=== PATIENT | male | born 1990 | race Caucasian/White ===

== ENCOUNTER 2017-01-29 18:13 | Inpatient (IN) | payer OTHER ==
[2017-01-29 19:04] LABS: Hematocrit 47 % (42-52); Hemoglobin 15.4 g/dl (14.0-18.0); Mean Corpuscular HGB Conc 33 g/dl (31-36); Mean Corpuscular Hemoglobin 30 pg (27-31); Mean Corpuscular Volume 92 fL (80-94); Mean Platelet Volume 9 um3 (7.4-10.4); Red Blood Count 5.08 10^6/ul (4.0-5.4); Red Cell Distribution Width 14 % (10.5-15); White Blood Count 8.9 10^3/ul (3.5-10.8)
[2017-01-29 19:21] LABS: Benzodiazepine Urine Screen None Detected (None Detect)
[2017-01-29 19:21] LABS: ALT 12 U/L (7-52); AST 20 U/L (13-39); Albumin 4.5 g/dL (3.2-5.2); Alkaline Phosphatase 62 U/L (34-104); Anion Gap 7 mmol/L (2-11); BUN/Creatinine Ratio 14.4 (8-20); Blood Urea Nitrogen 16 mg/dL (6-24); CO2 Carbon Dioxide 29 mmol/L (22-32); Calcium 9.1 mg/dL (8.6-10.3); Chloride 104 mmol/L (101-111); EGFR Non-African American 80.1 (>60); Globulin 2.7 g/dL (2-4); Glucose 115 mg/dL (70-100); Potassium 3.5 mmol/L (3.5-5.0); Sodium 140 mmol/L (133-145); Total Protein 7.2 g/dL (6.4-8.9)
[2017-01-29 19:32] LABS: Urine Bilirubin Negative (Negative); Urine Glucose Negative (Negative); Urine Nitrite Negative (Negative)
[2017-01-29 19:36] LABS: Acetaminophen < 15 mcg/mL; Alcohol < 10 mg/dL (<10); Salicylate < 2.50 mg/dL (<30)
[2017-01-29 19:47] LABS: TSH (Thyroid Stimulating Horm) 3.28 mcIU/mL (0.34-5.60)
--- NOTE | 2017-01-29 22:36 | ED ---
Evin Jin Alok, scribed for Antwan Felder MD on 01/29/17 at 1945 . Psychiatric Complaint - HPI Summary HPI Summary: 26 y/o male presents to the ED seeking MHU evaluation for stress and anxiety. Pt denies SI/HI and denies alcohol or ETOH use. - History Of Current Complaint Chief Complaint: EDMentalHealth Time Seen by Provider: 01/29/17 18:29 Hx Obtained From: Patient Onset/Duration: Gradual Onset, Lasting Days, Still Present Timing: Constant Severity Initially: Moderate Severity Currently: Moderate Character: Anxious Aggravating Factor(s): Nothing Alleviating Factor(s): Nothing Associated Signs And Symptoms: Positive: Negative Has Suicidal: Denies: Thoughts Has Homicidal: Denies: Thoughts - Allergies/Home Medications Allergies/Adverse Reactions: Allergies Allergy/AdvReac Type Severity Reaction Status Date / Time No Known Allergies Allergy Verified 03/27/16 12:36 PMH/Surg Hx/FS Hx/Imm Hx Endocrine/Hematology History: Denies: Hx Anticoagulant Therapy, Hx Diabetes, Hx Thyroid Disease Cardiovascular History: Denies: Hx Hypertension, Hx Pacemaker/ICD Respiratory History: Denies: Hx Asthma, Hx Chronic Obstructive Pulmonary Disease (COPD) History: Denies: Hx Renal Disease Neurological History: Denies: Hx Dementia, Hx Seizures Psychiatric History: Denies: Hx Substance Abuse Infectious Disease History: No Infectious Disease History: Denies: Hx Hepatitis, Hx Human Immunodeficiency Virus (HIV), History Other Infectious Disease, Traveled Outside the [place] in Last 30 Days - Family History Known Family History: Positive: Other Negative: Diabetes - Social History Lives: With Family Alcohol Use: Rare Substance Use Type: Reports: Excessive Caffeine, Marijuana Smoking Status (MU): Current Some Day Smoker Type: Cigars Review of Systems Negative: Fever Positive: Anxious All Other Systems Reviewed And Are Negative: Yes Physical Exam Triage Information Reviewed: Yes Vital Signs On Initial Exam: Initial Vitals Temp Pulse Resp BP Pulse Ox 99.2 F 92 15 138/81 100 01/29/17 18:14 01/29/17 18:14 01/29/17 18:14 01/29/17 18:14 01/29/17 18:14 Vital Signs Reviewed: Yes Appearance: Positive: Well-Appearing, No Pain Distress Skin: Positive: Warm, Skin Color Reflects Adequate Perfusion, Dry Head/Face: Positive: Normal Head/Face Inspection Eyes: Positive: EOMI, KATHERINE ENT: Positive: Normal ENT inspection Neck: Positive: Supple, Nontender Respiratory/Lung Sounds: Positive: Clear to Auscultation, Breath Sounds Present Cardiovascular: Positive: RRR Abdomen Description: Positive: Nontender, Soft Bowel Sounds: Positive: Present Musculoskeletal: Positive: Normal, Strength/ROM Intact Neurological: Positive: Normal, Sensory/Motor Intact, Alert, Oriented to Person Place, Time Psychiatric: Positive: Affect/Mood Appropriate Diagnostics - Vital Signs Vital Signs Temp Pulse Resp BP Pulse Ox 01/29/17 19:39 98.7 F 92 16 132/87 98 01/29/17 18:54 99.4 F 77 18 122/75 100 01/29/17 18:14 99.2 F 92 15 138/81 100 - Laboratory Lab Results: Lab Results 01/29/17 01/29/17 01/29/17 Range/Units 18:42 18:42 18:55 WBC 8.9 (3.5-10.8) 10^3/ul RBC 5.08 (4.0-5.4) 10^6/ul Hgb 15.4 (14.0-18.0) g/dl Hct 47 (42-52) % MCV 92 (80-94) fL MCH 30 (27-31) pg MCHC 33 (31-36) g/dl RDW 14 (10.5-15) % Plt Count 248 (150-450) 10^3/ul MPV 9 (7.4-10.4) um3 Neut % (Auto) 68.2 (38-83) % Lymph % (Auto) 20.7 L (25-47) % [place] % (Auto) 8.9 (1-9) % Eos % (Auto) 1.3 (0-6) % Baso % (Auto) 0.9 (0-2) % Absolute Neuts (auto) 6.1 (1.5-7.7) 10^3/ul Absolute Lymphs (auto) 1.8 (1.0-4.8) 10^3/ul Absolute Monos (auto) 0.8 (0-0.8) 10^3/ul Absolute Eos (auto) 0.1 (0-0.6) 10^3/ul Absolute Basos (auto) 0.1 (0-0.2) 10^3/ul Absolute Nucleated RBC 0.01 10^3/ul Nucleated RBC % 0.1 Sodium 140 (133-145) mmol/L Potassium 3.5 (3.5-5.0) mmol/L Chloride 104 (101-111) mmol/L Carbon Dioxide 29 (22-32) mmol/L Anion Gap 7 (2-11) mmol/L BUN 16 (6-24) mg/dL Creatinine 1.11 (0.67-1.17) mg/dL Est GFR ( Amer) 103.0 (>60) Est GFR (Non-Af Amer) 80.1 (>60) BUN/Creatinine Ratio 14.4 (8-20) Glucose 115 H (70-100) mg/dL Calcium 9.1 (8.6-10.3) mg/dL Total Bilirubin 0.40 (0.2-1.0) mg/dL AST 20 (13-39) U/L ALT 12 (7-52) U/L Alkaline Phosphatase 62 (34-104) U/L Total Protein 7.2 (6.4-8.9) g/dL Albumin 4.5 (3.2-5.2) g/dL Globulin 2.7 (2-4) g/dL Albumin/Globulin Ratio 1.7 (1-3) TSH Pending Urine Color Yellow Urine Appearance Clear Urine pH 5.0 (5-9) Ur Specific [place] 1.026 (1.010-1.030) Urine Protein Negative (Negative) Urine Ketones Trace H (Negative) Urine Blood Negative (Negative) Urine Nitrate Negative (Negative) Urine Bilirubin Negative (Negative) Urine Urobilinogen Negative (Negative) Ur Leukocyte Esterase Negative (Negative) Urine Glucose Negative (Negative) Salicylates < 2.50 (<30) mg/dL Urine Opiates Screen (None Detect) Acetaminophen < 15 mcg/mL Ur Barbiturates Screen (None Detect) Ur Phencyclidine Scrn (None Detect) Ur Amphetamines Screen (None Detect) U Benzodiazepines Scrn (None Detect) Urine Cocaine Screen (None Detect) U Cannabinoids Screen (None Detect) Serum Alcohol < 10 (<10) mg/dL 01/29/17 Range/Units 18:55 WBC (3.5-10.8) 10^3/ul RBC (4.0-5.4) 10^6/ul Hgb (14.0-18.0) g/dl Hct (42-52) % MCV (80-94) fL MCH (27-31) pg MCHC (31-36) g/dl RDW (10.5-15) % Plt Count (150-450) 10^3/ul MPV (7.4-10.4) um3 Neut % (Auto) (38-83) % Lymph % (Auto) (25-47) % [place] % (Auto) (1-9) % Eos % (Auto) (0-6) % Baso % (Auto) (0-2) % Absolute Neuts (auto) (1.5-7.7) 10^3/ul Absolute Lymphs (auto) (1.0-4.8) 10^3/ul Absolute Monos (auto) (0-0.8) 10^3/ul Absolute Eos (auto) (0-0.6) 10^3/ul Absolute Basos (auto) (0-0.2) 10^3/ul Absolute Nucleated RBC 10^3/ul Nucleated RBC % Sodium (133-145) mmol/L Potassium (3.5-5.0) mmol/L Chloride (101-111) mmol/L Carbon Dioxide (22-32) mmol/L Anion Gap (2-11) mmol/L BUN (6-24) mg/dL Creatinine (0.67-1.17) mg/dL Est GFR ( Amer) (>60) Est GFR (Non-Af Amer) (>60) BUN/Creatinine Ratio (8-20) Glucose (70-100) mg/dL Calcium (8.6-10.3) mg/dL Total Bilirubin (0.2-1.0) mg/dL AST (13-39) U/L ALT (7-52) U/L Alkaline Phosphatase (34-104) U/L Total Protein (6.4-8.9) g/dL Albumin (3.2-5.2) g/dL Globulin (2-4) g/dL Albumin/Globulin Ratio (1-3) TSH Urine Color Urine Appearance Urine pH (5-9) Ur Specific [place] (1.010-1.030) Urine Protein (Negative) Urine Ketones (Negative) Urine Blood (Negative) Urine Nitrate (Negative) Urine Bilirubin (Negative) Urine Urobilinogen (Negative) Ur Leukocyte Esterase (Negative) Urine Glucose (Negative) Salicylates (<30) mg/dL Urine Opiates Screen None detected (None Detect) Acetaminophen mcg/mL Ur Barbiturates Screen None detected (None Detect) Ur Phencyclidine Scrn None detected (None Detect) Ur Amphetamines Screen None detected (None Detect) U Benzodiazepines Scrn None detected (None Detect) Urine Cocaine Screen None detected (None Detect) U Cannabinoids Screen None detected (None Detect) Serum Alcohol (<10) mg/dL Result Diagrams: 01/29/17 18:42 01/29/17 18:42 Lab Statement: Any lab studies that have been ordered have been reviewed, and results considered in the medical decision making process. Course/Dx - Course Course Of Treatment: NO CRITICAL CARE TIME Assessment/Plan: DISPOSITION/MHE PENDING AT SHIFT CHANGE, STABLE. - Differential Dx/Clinical Impression Provider Diagnosis: Mental health problem Discharge - Discharge Plan Condition: Stable Disposition: PSYCHIATRIC FACILITY-[facility] Referrals: No Primary Care Phys,NOPCP [Primary Care Provider] - The documentation as recorded by the Evin morales Alok accurately reflects the service I personally performed and the decisions made by me, Antwan Felder MD.
[2017-01-30] MEDS ORDERED: Al Hydrox/Mg Hydrox/Simet LIQ* 30 ML UDC PO PRN (00:52)
[2017-01-30] MEDS ORDERED: Acetaminophen TAB* 325 MG PO PRN (00:52)
[2017-01-30] MEDS: Vitamin THERAPEUTIC TAB PO SCH (09:41)
[2017-01-30] MEDS ORDERED: Magnesium Hydroxide LIQ* 30 ML UDC PO ONE (17:00)
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
[2017-01-30] MEDS: QUEtiapine TAB* 100 MG PO SCH (21:15)
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
[2017-01-31] MEDS ORDERED: Influenza VAC *QUAD* 2016-17* 0.5 ML SYRINGE IM ONE (09:00)
[2017-01-31] MEDS: Vitamin THERAPEUTIC TAB PO SCH (10:06)
[2017-01-31] MEDS: QUEtiapine TAB* 100 MG PO SCH (20:52)
[2017-02-01] MEDS: Vitamin THERAPEUTIC TAB PO SCH (10:42)
--- NOTE | 2017-02-01 15:04 | PN ---
Subjective - Subjective Service Type: [id number] Hosp care 15 min low complexity Subjective: Patient reports feeling good overall. He is reports good mood, sleep, and appetite. Denies any new issues. Denies any medication side effects. He talked about his culinary abilities today and his time at the group home. Denies suicidal/ homicidal ideation. Case discussed with Dr. Rutherford. Objective - Appearance Dysmorphic Features: No Hygiene: Normal Grooming: Disheveled - Behavior Psychomotor Activities: Normal Exhibits Abnormal Movement: No - Attitude and Relatedness Attitude and Relatedness: Cooperative Eye Contact: Fair - Speech Quality: Unpressured Latencies: Normal Quantity: Appropriate - Mood Patient's Decription of Mood: "Okay" - Affect Observed Affect: Labile - seemed to laugh easily even when stimuli not intended to be humerous. Affect Consistent with: Euthymia - Thought Process Patient's Thought Process: Circumstantial, Over Inclusive Thought Content: No Passive Wish, No Suicidal Planning, No Homicidal Ideation, No Paranoid Ideation - Sensorium Experiencing Hallucinations: No, Sensorium is Clear Type of Hallucinations: Visual: No, Auditory: No, Command: No - Level of Consciousness Level of Consciousness: Alert Orientation: Yes Intact, Yes Orientated to Time, Yes Orientated to Place, Yes Orientated to Person - Impulse Control Impulse Control: Impaired - Insight and Judgement Insight and Judgement: Poor - Medication Management Medication Management Adherence: Yes Assessment - Assessment Inpatient DSM-IV Dx: Unspecified Psychotic Disorder Plan - Plan Treatment Plan: Name: JAKUB LEUNG Birthdate: 1990 [id number] Medications: Current Medications Acetaminophen (Tylenol Tab*) 650 mg PO Q4H PRN PRN Reason: PAIN or TEMP > 101 F Al Hydrox/Mg Hydrox/Simethicone (Maalox Plus*) 30 ml PO Q4H PRN PRN Reason: INDIGESTION Multivitamins (Theragran Tab*) 1 tab PO DAILY [facility] Last Admin: 02/01/17 10:42 Dose: Not Given Quetiapine Fumarate (Seroquel Tab*) 200 mg PO BEDTIME [facility] Last Admin: 01/31/17 20:52 Dose: 200 mg
[2017-02-01] MEDS: QUEtiapine TAB* 100 MG PO SCH (21:58)
[2017-02-02] MEDS: Vitamin THERAPEUTIC TAB PO SCH (10:21)
--- NOTE | 2017-02-02 14:08 | PN ---
MHU: Group Therapy Note - Service Type Service Type: [id number] Group Psychotherapy - Cognitive Behavioral Psychotherapy Note: Maurisio was relevant and topical in group discussion, but impressed as experiencing ideas of reference in individual conversation shortly thereafter. He asked this typewriter assembler if I knew things about him, simply because of being a psychologist, and described how a peer was able to describe him without knowing him well. He presented with good eye contact and fair affect.
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
[2017-02-02] MEDS: QUEtiapine TAB* 100 MG PO SCH (22:04)
[2017-02-03] MEDS: Vitamin THERAPEUTIC TAB PO SCH (09:15)
--- NOTE | 2017-02-03 11:06 | PN ---
MHU: Group Therapy Note - Service Type Service Type: [id number] Group Psychotherapy - Cognitive Behavioral Group Therapy ( CBT):Patient was attentive and participatory in CBT programming this morning, and remained in good behavioral control. Patient expressed positive insights regarding relevant treatment interventions and goals.
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
[2017-02-03] MEDS: QUEtiapine TAB* 100 MG PO SCH (22:27)
[2017-02-04 07:44] LABS: HDL Cholesterol 53.5 mg/dL
[2017-02-04] MEDS: Vitamin THERAPEUTIC TAB PO SCH (10:01)
--- NOTE | 2017-02-04 14:09 | PN ---
MHU: Group Therapy Note - Service Type Service Type: [id number] Group Psychotherapy - Cognitive Behavioral Group Therapy ( CBT):Patient was attentive and participatory in CBT programming this morning, and remained in good behavioral control. Patient expressed positive insights regarding relevant treatment interventions and goals.
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
[2017-02-04] MEDS: QUEtiapine TAB* 100 MG PO SCH (20:38)
[2017-02-05] MEDS: Vitamin THERAPEUTIC TAB PO SCH (10:23)
--- NOTE | 2017-02-05 11:59 | PN ---
MHU: Group Therapy Note - Service Type Service Type: [id number] Group Psychotherapy - Cognitive Behavioral Group Therapy ( CBT):Patient was attentive and participatory in CBT programming this morning, and remained in good behavioral control. Patient expressed positive insights regarding relevant treatment interventions and goals.
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
[2017-02-05] MEDS: QUEtiapine TAB* 100 MG PO SCH (22:04)
[2017-02-06 08:55] VITALS: BP 117/79
[2017-02-06] MEDS: Vitamin THERAPEUTIC TAB PO SCH (09:36)
--- NOTE | 2017-02-06 14:52 | PN ---
MHU: Group Therapy Note - Service Type Service Type: [id number] Group Psychotherapy - Cognitive Behavioral Group Therapy ( CBT):Patient was attentive and participatory in CBT programming this morning, and remained in good behavioral control. Patient expressed positive insights regarding relevant treatment interventions and goals.
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
== END 2017-02-06 14:30 | disposition home or self-care (01) | DRG 751 ==
LOC: ED 18:13 → BSU 01-30 00:17
PROVIDERS: ADMIT Internal Medicine; ATTEND Psychiatry & Neurology Psychiatry
DX: F29 Unspecified psychosis not due to a substance or known physiological condition (principal); Z81.8 Family history of other mental and behavioral disorders
CPT/HCPCS: 36415; 80053; 80061; 80307; 80320; 80329; 81003; 83036; 84443; 85025; 90686; 90847; 90853; 99222; 99231; 99232; 99238; 99406; A9270-GY; G0480

== ENCOUNTER 2018-02-08 09:10 | Emergency (ER) | payer OTHER ==
[2018-02-08] MEDS ORDERED: Tetracaine 0.5% OPTH.SOL 4 ML* 1 DROP BTL RIGHT EYE ONE (09:32)
[2018-02-08] MEDS ORDERED: Fluorescein Sodium TOPICAL* 1 MG TEST OPHTHALMIC ONE (09:32)
[2018-02-08] MEDS ORDERED: Tetracaine 0.5% OPTH.SOL 4 ML* 1 DROP BTL LEFT EYE ONE (09:34)
[2018-02-08] MEDS ORDERED: Fluorescein Sod TOPICAL 0.6* 0.6 MG TEST OPHTHALMIC ONE (09:57)
[2018-02-08 10:30] VITALS: BP 139/88
--- NOTE | 2018-02-08 10:31 | ED ---
Throat Pain/Nasal Congestion - HPI Summary HPI Summary: Patient is a 27-year-old male who presents emergency department for left eye pain times several days. Patient states he was helping a neighbor move a plant when the plant poked him in his left thigh. Patient states he immediately had pain and noticed a small bruised area to his conjunctiva. Patient states symptoms are improving but he wanted to get checked out today. He states his eye feels irritated with blinking. Denies visual changes, redness, drainage. Does not wear contacts. Symptoms are mild in severity. - History of Current Complaint Chief Complaint: EDEyeProblem Time Seen by Provider: 02/08/18 09:32 Hx Obtained From: Patient - Allergies/Home Medications Allergies/Adverse Reactions: Allergies Allergy/AdvReac Type Severity Reaction Status Date / Time No Known Allergies Allergy Verified 03/27/16 12:36 PMH/Surg Hx/FS Hx/Imm Hx Previously Healthy: Yes Endocrine/Hematology History: Denies: Hx Anticoagulant Therapy, Hx Diabetes, Hx Thyroid Disease Cardiovascular History: Denies: Hx Hypertension, Hx Pacemaker/ICD Respiratory History: Denies: Hx Asthma, Hx Chronic Obstructive Pulmonary Disease (COPD) History: Denies: Hx Renal Disease Sensory History: Denies: Hx Contacts or Glasses, Hx Hearing Aid Opthamlomology History: Denies: Hx Contacts or Glasses Neurological History: Denies: Hx Dementia, Hx Seizures Psychiatric History: Reports: Hx Depression, Hx Community Mental Health Tx Denies: Hx Substance Abuse Infectious Disease History: No Infectious Disease History: Denies: Hx Hepatitis, Hx Human Immunodeficiency Virus (HIV), History Other Infectious Disease, Traveled Outside the [place] in Last 30 Days - Family History Known Family History: Positive: Other Negative: Diabetes - Social History Occupation: Unemployed Lives: Alone Alcohol Use: Rare Substance Use Type: Reports: None Smoking Status (MU): Current Some Day Smoker Type: Cigars Review of Systems Positive: Other - Discomfort left eye. Negative: Photophobia, Blurred Vision, Diplopia, Drainage, Erythema All Other Systems Reviewed And Are Negative: Yes Physical Exam Triage Information Reviewed: Yes Vital Signs On Initial Exam: Initial Vitals Temp Pulse Resp BP Pulse Ox 97.3 F 80 15 145/94 100 02/08/18 09:15 02/08/18 09:15 02/08/18 09:15 02/08/18 09:15 02/08/18 09:15 Vital Signs Reviewed: Yes Appearance: Positive: Well-Appearing - Pt. sitting on bed in NAD. Anxious. Head/Face: Positive: Normal Head/Face Inspection Eyes: Positive: Other: - Right eye unremarkable. Left eye conjunctiva is clear without injection. Anterior chamber is clear. No drainage. No erythema or edema to eyelids. Extraocular muscles are intact without pain. Psychiatric: Positive: Anxious Procedures - Procedure Summary Procedure Summary: Examination of left eye: Pt. declined tetracaine drops. Fluorescein dye was used to stain left eye. Eye was examined under Swanson lamp. No uptake noted. Eyelid was everted and no foreign body identified. Diagnostics - Vital Signs Vital Signs Temp Pulse Resp BP Pulse Ox 02/08/18 09:15 97.3 F 80 15 145/94 100 - Laboratory Lab Statement: Any lab studies that have been ordered have been reviewed, and results considered in the medical decision making process. EENT Course/Dx - Course Course Of Treatment: Patient presenting to the ER for evaluation of eye pain after being poked in the eye with a plant several days ago. His symptoms are improving and are minimal at this time. No definite uptake was noted on exam but suspect small corneal abrasion. No signs of infection on exam. Erythromycin ointment prescribed. Advised patient to follow up with on-call ophthalmology if symptoms continue. To return to the er if symptoms change or worsen. Patient understands and agrees with plan. - Differential Diagnoses Differential Diagnoses: Conjunctivitis, Corneal Abrasion, Foreign Body - Diagnoses Provider Diagnoses: Corneal abrasion Discharge - Sign-Out/Discharge Documenting (check all that apply): Discharge/Admit/Transfer - Discharge Plan Condition: Good Disposition: HOME Prescriptions: Erythromycin OPTH OINT* [Erythromycin 0.5% OPTH OINT*] 1 applic LEFT EYE TID #1 ophth.oint Patient Education Materials: Corneal Abrasion (ED) Referrals: No Primary Care Phys,NOPCP [Primary Care Provider] - Jorge Luis Mccrary MD [Medical Doctor] - Additional Instructions: Follow up with Dr. Mccrary if symptoms continue Use ointment as directed Return to ER if symptoms change or worsen - Billing Disposition and Condition Condition: GOOD Disposition: HOME
== END 2018-02-08 10:28 | disposition home or self-care (01) ==
LOC: ED 09:10
DX: S05.02XA Injury of conjunctiva and corneal abrasion without foreign body, left eye, initial encounter (principal); W22.8XXA Striking against or struck by other objects, initial encounter; Y92.9 Unspecified place or not applicable; F17.290 Nicotine dependence, other tobacco product, uncomplicated
CPT/HCPCS: 99282; A9270-GY

== ENCOUNTER → 2019-04-07 12:44 | Emergency (ER) | payer OTHER ==
--- NOTE | 2019-04-07 14:40 | ED ---
Skin Complaint - HPI Summary HPI Summary: 28 year male presents with rash for the past month. Rash is located on groin and thighs. He hasn't tried anything for the rash. States it is a burning pain. Denies any flakiness or itchiness. No new soaps or products. No fevers or chills. Rash has not spread. Rash has not changed over the past 7 months. 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 - History of Current Complaint Chief Complaint: EDRashSkinAbscess Time Seen by Provider: 04/07/19 14:19 Stated Complaint: GROIN PAIN PER PT Pain Intensity: 2 - Additional Pertinent History Primary Care Physician: [id number] - Allergy/Home Medications Allergies/Adverse Reactions: Allergies Allergy/AdvReac Type Severity Reaction Status Date / Time No Known Allergies Allergy Verified 04/07/19 12:52 PMH/Surg Hx/FS Hx/Imm Hx Endocrine/Hematology History: Denies: Hx Anticoagulant Therapy, Hx Diabetes, Hx Thyroid Disease Cardiovascular History: Denies: Hx Hypertension, Hx Pacemaker/ICD Respiratory History: Denies: Hx Asthma, Hx Chronic Obstructive Pulmonary Disease (COPD) History: Denies: Hx Renal Disease Sensory History: Denies: Hx Contacts or Glasses, Hx Hearing Aid Opthamlomology History: Denies: Hx Contacts or Glasses Neurological History: Denies: Hx Dementia, Hx Seizures Psychiatric History: Reports: Hx Depression, Hx Community Mental Health Tx Denies: Hx Substance Abuse Infectious Disease History: No Infectious Disease History: Denies: Hx Hepatitis, Hx Human Immunodeficiency Virus (HIV), History Other Infectious Disease, Traveled Outside the [place] in Last 30 Days - Family History Known Family History: Positive: Other Negative: Diabetes - Social History Alcohol Use: Rare Substance Use Type: Reports: None Smoking Status (MU): Current Some Day Smoker Type: Cigars Review of Systems Negative: Fever Negative: Chest Pain Negative: Shortness Of Breath Positive: Rash All Other Systems Reviewed And Are Negative: Yes Physical Exam Triage Information Reviewed: Yes Vital Signs On Initial Exam: Initial Vitals Temp Pulse Resp BP Pulse Ox 99.0 F 96 18 127/99 96 04/07/19 12:48 04/07/19 12:48 04/07/19 12:48 04/07/19 12:48 04/07/19 12:48 Vital Signs Reviewed: Yes Appearance: Positive: Well-Appearing Skin: Positive: Warm, Dry, Other - erythema to thigh and groin no scaling Head/Face: Positive: Normal Head/Face Inspection Eyes: Positive: Normal, Conjunctiva Clear ENT: Positive: Pharynx normal Respiratory/Lung Sounds: Positive: Clear to Auscultation, Breath Sounds Present Cardiovascular: Positive: Normal, RRR Musculoskeletal: Positive: Normal Neurological: Positive: Normal Psychiatric: Positive: Normal Diagnostics - Vital Signs Vital Signs Temp Pulse Resp BP Pulse Ox 04/07/19 12:48 99.0 F 96 18 127/99 96 - Laboratory Lab Statement: Any lab studies that have been ordered have been reviewed, and results considered in the medical decision making process. Course/Dx - Course Course Of Treatment: 28 year male presents with rash for the past month. Rash is located on groin and thighs. He hasn't tried anything for the rash. States it is a burning pain. Denies any flakiness or itchiness. No new soaps or products. No fevers or chills. Rash has not spread. Rash has not changed over the past 7 months. 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 On exam has erythematous rash on thighs and groin. Most consistent with a heat rash type rash but could also be tinea corporis although no scaling noted. Will place patient on nystatin to prevent fungal infection. Told can place hydrocortisone on the area for itchiness. Patient understands agrees with plan. - Differential Diagnoses - Skin Complaint Differential Diagnoses: Contact Dermatitis, Tinea, Other - heat rash - Diagnoses Provider Diagnoses: Rash Discharge - Sign-Out/Discharge Documenting (check all that apply): Patient Departure Patient Received Moderate/Deep Sedation with Procedure: No - Discharge Plan Condition: Good Disposition: HOME Prescriptions: Nystatin TOP POWDER* 1 applic TOPICAL BID #1 btl Patient Education Materials: Skin Yeast Infection (ED) Referrals: [facility] [Outside] Additional Instructions: apply powder to area twice a day wear loose clothing can also try hydrocortisone on thigh rash if no improvement with powder as needed for itchiness establish care with primary Return to ED if develop any new or worsening symptoms - Billing Disposition and Condition Condition: GOOD Disposition: Home
[2019-04-07 14:50] VITALS: BP 134/85
== END | disposition home or self-care (01) ==
LOC: ED 12:44
DX: R21 Rash and other nonspecific skin eruption (principal); F17.290 Nicotine dependence, other tobacco product, uncomplicated
CPT/HCPCS: 99282